=== PATIENT | male | born 1945 | race Caucasian/White ===

== ENCOUNTER 2017-12-03 12:00 | Emergency (ER) | payer BC ==
[2017-12-03 13:17] VITALS: BP 145/89
[2017-12-03] MEDS ORDERED: Lidocaine 1%* 5 ML VIAL INJ ONE (13:40)
[2017-12-03] MEDS ORDERED: Tetan/Diph/Pertus SYR(Tdap)* 0.5 ML SYR(BOOSTRIX) use SYR IM ONE (13:40)
--- NOTE | 2017-12-03 14:19 | UC ---
Elbow Pain - HPI Summary HPI Summary: 72-year-old male presents with left elbow injury. States he was leaving his garage last night in the dark, was descending some stairs, missed the bottom step and fell to the ground striking his left elbow on hardtop. This occurred approximately 9:30 last night. Denies hitting his head or losing consciousness. Sustained a skin tear to his left elbow. Denies fever, chills, pain in the elbow, swelling of the elbow, numbness, or weakness tingling in his extremity. Bleeding is controlled at the time of presentation. Tetanus status is unknown. - History of Current Complaint Chief Complaint: UCLaceration Stated Complaint: S/P LEFT ELBOW LACERATION Time Seen by Provider: 12/03/17 13:06 Hx Obtained From: Patient Mechanism of Injury: fall Onset/Duration: Traumatic - See history of present illness Severity Currently: Mild Pain Intensity: 2 Location Of Pain: Is Discrete @ - Left elbow Character: Aching Aggravating Factor(s): Nothing Alleviating Factor(s): Nothing Associated Signs And Symptoms: Negative: Swelling, Redness, Bruising, Fever, Weakness, Numbness/Tingling - Allergies/Home Medications Allergies/Adverse Reactions: Allergies Allergy/AdvReac Type Severity Reaction Status Date / Time med that made tongue roll Allergy tongue Uncoded 12/03/17 13:19 rolled up Home Medications: Home Medications Hydrochlorothiazide TAB* [Hydrodiuril TAB*] 25 mg PO DAILY 12/03/17 [History Confirmed 12/03/17] PMH/Surg Hx/FS Hx/Imm Hx Previously Healthy: Yes Cardiovascular History: Hypertension - Surgical History Surgical History: Yes Surgery Procedure, Year, and Place: stomach, cervical fusions, tonsilectomy - Family History Family History: Noncontributory - Social History Occupation: Employed Full-time Lives: With Family Alcohol Use: Daily Alcohol Amount: 2 beers Substance Use Type: None Smoking Status (MU): Former Smoker - Immunization History Most Recent Tetanus Shot: UNKNOWN Review of Systems Constitutional: Negative Skin: Other - See history of present illness Respiratory: Negative Cardiovascular: Negative Motor: Negative Neurovascular: Negative Musculoskeletal: Arthralgia - Mild left elbow pain Is Patient Immunocompromised?: No All Other Systems Reviewed And Are Negative: Yes Physical Exam Triage Information Reviewed: Yes Appearance: Well-Appearing, No Pain Distress, Well-Nourished Vital Signs: Initial Vital Signs Temp 98.4 F 12/03/17 13:08 Pulse 52 12/03/17 13:08 Resp 18 12/03/17 13:08 BP 145/89 12/03/17 13:08 Pulse Ox 100 12/03/17 13:08 Vital Signs Reviewed: Yes Neck: Positive: Supple, Nontender Respiratory: Positive: Lungs clear, Normal breath sounds, No respiratory distress Cardiovascular: Positive: RRR, No Murmur, Pulses Normal, Brisk Capillary Refill Abdomen Description: Positive: Nontender, No Organomegaly, Soft Musculoskeletal: Positive: Strength Intact, ROM Intact - Left elbow, No Edema Neurological: Positive: Alert, Other: - Sensation intact distally Skin: Positive: significant lesion(s) - Skin tear to the left elbow approximately 2 cm in diameter with a nonviable flap. Bleeding is controlled. No redness, swelling, discharge, or foreign body noted. Procedures - Procedure Summary Procedure Summary: Procedural note: Wound revision of the left elbow. Informed consent was obtained prior to the procedure. Appropriate time out was taken. Procedure: The wound was irrigated with sterile saline prior to procedure. The skin was then cleansed with a chlorhexidine saline solution. Good local anesthesia was obtained using 1 mL of lidocaine 1% without epinephrine. The skin flap along the inferior margin of the skin tear was then trimmed using iris scissors. Hemostasis was achieved with direct pressure and a sterile dressing was applied using Xeroform and a bulky gauze dressing. Anticipatory guidance as well as wound care and warning symptoms of infection were reviewed with the patient. Verbalizes understanding. Patient tolerated procedure well without complications. Elbow Pain Course/Dx - Course Course Of Treatment: 72 year old male presents of left elbow injury s/p fall down stair that occurred the previous evening. Exam revealed a superficial skin tear to posterior left elbow with a non-viable skin flap. An excision debridement of the wound was performed and left open to heal by secondary intention. Patient had painless full ROM of the elbow therefore imaging was deferred. Wound care and warning symptoms of infection were discusssed with patient. Verbalizes understanding. He is to establish with a PCP for recheck of his blood pressure otherwise he is to return here for any complications. - Differential Dx/Diagnosis Provider Diagnoses: Skin tear left elbow, excisional debridement of wound, elevated blood pressure reading Discharge - Sign-Out/Discharge Documenting (check all that apply): Patient Departure All imaging exams completed and their final reports reviewed: No Studies - Discharge Plan Condition: Stable Disposition: HOME Patient Education Materials: Acute Wounds (ED) Referrals: No Primary Care Phys,NOPCP [Primary Care Provider] - Additional Instructions: The skin tear to your left elbow was not able to be repaired. I did remove the excess skin to allow for good clean healing. This wound will need to slowly heal from the inside out and may take a couple of weeks to completely heal. Leave the dressing that was applied in the clinic today in place for the next 24 hours. If there is any bleeding through the dressing simply had some more gauze to the outside. After 24 hours you may remove the dressing and shower as normal. He should gently clean this wound with a mild soap and water twice a day. Apply a small amount of antibiotic ointment the wound and cover with a nonstick dressing. Watch for signs of infection including fever greater than 100.5 F, redness that spreads, swelling of the elbow, pain that is not managed with [id number] pain medications, decreased range of motion to the elbow or any loss of function. Seek immediate medical attention should any of these symptoms occur. Your blood pressure today was elevated. He should make an appointment with a primary care provider within the next month to have this rechecked. - Billing Disposition and Condition Condition: STABLE Disposition: Home
== END 2017-12-03 14:25 | disposition home or self-care (01) ==
LOC: UCCORT 12:00
DX: S51.012A Laceration without foreign body of left elbow, initial encounter (principal); W10.9XXA Fall (on) (from) unspecified stairs and steps, initial encounter; Y93.01 Activity, walking, marching and hiking; Y92.008 Other place in unspecified non-institutional (private) residence as the place of occurrence of the external cause; Z23 Encounter for immunization; I10 Essential (primary) hypertension; Z87.891 Personal history of nicotine dependence
CPT/HCPCS: 11000; 90471; 90715; 99211; G0463